=== PATIENT | female | born 1945 | race Caucasian/White ===

== ENCOUNTER 2018-11-25 12:25 | Emergency (ER) | payer MEDICARE ==
[2018-11-25 13:10] LABS: Bilirubin Negative (Negative); Blood, Urine Negative (Negative); Clarity Clear (Clear); Glucose, Urine (Dipstick) Normal (Negative); Leukocyte Negative Leu/uL (Negative); Nitrite Negative (Negative); Protein, Urine (Dipstick) Negative (Neg-Trace); Urobilinogen Normal mg/dL (Less than 2)
[2018-11-25 13:10] LABS: #Basophils 0.1 thou/uL (0.0-0.2); #Eosinphils 0.1 thou/uL (0.0-0.7); #Lymphocytes 1.8 thou/uL (1.20-3.40); #Monocytes 0.7 thou/uL (0.11-0.59); #Neutrophils 8.2 thou/uL (1.40-6.50); %Basophils 0.9 % (0.0-1.0); %Eosinophils 0.6 % (0.0-10.0); %Lymphocytes 16.8 % (21.0-51.0); %Monocytes 6.4 % (0.0-10.0); %Neutrophils 75.4 % (42.0-75.0); Hemoglobin 15.5 g/dL (12.0-16.0); Mean Corpuscular HGB CONC 31.5 g/dL (32.0-36.0); Mean Corpuscular Volume 98.2 fL (78.0-98.0); Mean Platelet Volume 8.3 fL (7.4-10.4); Platelet Count 220 thou/uL (130-400); RBC Distribution Width 13.1 % (11.5-14.5); Red Blood Cell (RBC) Count 4.99 mill/uL (4.20-5.40); White Blood Cell (WBC) Count 10.9 thou/uL (4.8-10.8)
--- NOTE | 2018-11-25 13:12 | RAD ---
PORTABLE CHEST ONE VIEW: 11/25/2018 1:05 p.m. HISTORY: Syncope. Dizziness. FINDINGS: The heart size is normal. The aorta is tortuous. The lungs are well expanded without focal areas of consolidation, pneumothoraces, or pleural effusions. There are degenerative changes in the acromioc lavicular joints. IMPRESSION: No radiographic evidence of acute cardiopulmonary process. POS: [facility]
--- NOTE | 2018-11-25 13:13 | CT ---
EXAM: CT cervical spine PROVIDED CLINICAL HISTORY: Injury COMPARISON: None FINDINGS: No evidence for fracture or traumatic subluxation. No prevertebral soft tissue swelling apparent. Vi sualized lung apices appear clear. Degenerative changes are seen. IMPRESSION: No evidence for fracture or traumatic subluxation.
--- NOTE | 2018-11-25 13:13 | CT ---
CT Brain WO Con: 11/25/2018 12:49 PM CLINICAL HISTORY: Injury with pain. COMPARISON: None. FINDINGS: Hemorrhage: None. Ventricular system: Normal in size and morphology for the patient's age. Cerebral parenchyma: Microvascular ischemic disease Midline shift: None. Mass: No mass effect. Calvarium: Normal. Visualized Paranasal sinuses: Clear. IMPRESSION: No acute intracranial abnormalities.
[2018-11-25 13:30] LABS: ALT (SGPT) 17 U/L (8-55); AST (SGOT) 15 U/L (5-34); Albumin 4.1 g/dL (3.4-4.8); Alkaline Phosphatase 94 U/L (40-150); Anion Gap 11 mmol/L (10-20); BUN (Urea Nitrogen) 22 mg/dL (9.8-20.1); Bilirubin, Total 0.3 mg/dL (0.2-1.2); Calc. Creatinine Clearance 0 mL/min (70-130); Calcium 10.2 mg/dL (7.8-10.44); Carbon Dioxide 28 mmol/L (23-31); Chloride 104 mmol/L (98-107); Estimated GFR-MDRD 83; Globulin 2.6 g/dL (2.4-3.5); Glucose 86 mg/dL (80-115); Potassium 4.4 mmol/L (3.5-5.1); Protein, Total 6.7 g/dL (6.0-8.3); Sodium 139 mmol/L (136-145)
== END 2018-11-25 16:25 | disposition home or self-care (01) ==
LOC: ERS 12:25
DX: R55 Syncope and collapse (principal); F17.210 Nicotine dependence, cigarettes, uncomplicated
CPT/HCPCS: 36415; 36416; 70450; 71045; 72125; 80053; 81003; 84484; 85025; 93005; 94760

== ENCOUNTER 2019-01-09 10:47 | Observation (INO) | payer MEDICARE ==
--- NOTE | 2019-01-09 11:32 | RAD ---
FRONTAL RADIOGRAPH CHEST: DATE: 01/09/2019. COMPARISON: 11/25/2018. HISTORY: Numbness in feet, dizziness, syncope. FINDINGS: Lungs are clear. Heart and mediastinal contours are unremarkable. IMPRESSION: No acute findings. POS: OFF
[2019-01-09 11:41] LABS: ALT (SGPT) 14 U/L (8-55); AST (SGOT) 13 U/L (5-34); Albumin 4.5 g/dL (3.4-4.8); Alkaline Phosphatase 105 U/L (40-150); Anion Gap 12 mmol/L (10-20); BUN (Urea Nitrogen) 16 mg/dL (9.8-20.1); Bilirubin, Total 0.3 mg/dL (0.2-1.2); CK (CPK) 38 U/L (29-168); Calc. Creatinine Clearance 0 mL/min (70-130); Calcium 10.6 mg/dL (7.8-10.44); Carbon Dioxide 26 mmol/L (23-31); Chloride 105 mmol/L (98-107); Estimated GFR-MDRD 77; Globulin 2.9 g/dL (2.4-3.5); Glucose 77 mg/dL (83-110); Potassium 3.9 mmol/L (3.5-5.1); Protein, Total 7.4 g/dL (6.0-8.3); Sodium 139 mmol/L (136-145)
[2019-01-09 11:47] LABS: Bilirubin Negative (Negative); Blood, Urine Negative (Negative); Clarity Clear (Clear); Glucose, Urine (Dipstick) Normal (Negative); Leukocyte Negative Leu/uL (Negative); Nitrite Negative (Negative); Protein, Urine (Dipstick) Negative (Neg-Trace); Urobilinogen Normal mg/dL (Less than 2)
[2019-01-09 12:00] LABS: Band 3 % (5-11); Eosinophils 1 % (0-10); Hemoglobin 15.9 g/dL (12.0-16.0); Lymphocytes 16 % (21-51); MDiff Complete? YES; Mean Corpuscular HGB CONC 34.3 g/dL (32.0-36.0); Mean Corpuscular Hemoglobin 32.7 pg (27.0-31.0); Mean Corpuscular Volume 95.2 fL (78.0-98.0); Monocytes 2 % (0-10); Neutrophil 78 % (42-75); Platelet Count 244 thou/uL (130-400); Platelet Morphology Comment Appears Adequate; RBC Distribution Width 12.3 % (11.5-14.5); Red Blood Cell (RBC) Count 4.85 mill/uL (4.20-5.40)
--- NOTE | 2019-01-09 12:50 | CT ---
CT OF THE HEAD WITHOUT CONTRAST: DATE: 01/09/2019. COMPARISON: None. HISTORY: Syncope. TECHNIQUE: Axial CT imaging at 5 mm intervals from vertex through the skull base without contrast. FINDINGS: Imaged paranasal sinuses and mastoid air cells are well aerated. No displaced calvarial fracture. No intracranial hemorrhage, midline shift, mass effect, or ventricular enlargement. IMPRESSION: No acute findings. POS: OFF
[2019-01-09] MEDS ORDERED: Aspirin Chewable 81 MG TAB ONE (14:42)
[2019-01-09] MEDS ORDERED: Ondansetron ODT 4 MG TAB PO PRN (16:12)
[2019-01-09] MEDS ORDERED: Ondansetron PF 4 MG/2 ML Vial IVP PRN (16:12)
[2019-01-09] MEDS ORDERED: Meclizine HCl 12.5 MG TAB PO PRN (16:12)
[2019-01-09] MEDS ORDERED: Acetaminophen 325 MG TAB PO PRN (16:12)
[2019-01-09 16:43] VITALS: BMI 29.7
[2019-01-09] MEDS: Nicotine 14 MG PATCH TD SCH (18:11)
--- NOTE | 2019-01-09 23:01 | HP ---
PRIMARY CARE PHYSICIAN: eDep Pizano. CHIEF COMPLAINT: Near syncope. HISTORY OF PRESENT ILLNESS: Ms. Correa is a 73-year-old female who has a past medical history of chronic syncope and vertigo who had presented to [facility] earlier today after she experienced some worsening symptoms of near syncope and vertigo when she was lying down in bed. She states that symptoms got real bad to the point that she had passed out last month and she was seen in the hospital, she was also under the care of Dr. Padilla, lion trainer where she had undergone an echocardiogram, a stress test, and also had a 30-day event monitor placed; however, she states that she was supposed to follow up with Dr. Padilla in 1 to 2 weeks and has not heard any other results from the workup. She had denied any fever, chills, any headache, blurred vision, any chest pain, palpitations, shortness of breath, abdominal pain, nausea, vomiting, any change in her stool, numbness, tingling of her upper or lower extremities or any swelling. She states that symptoms come and go and she states that she has days that she has absolutely no symptoms and other days that she is unable to get out of bed due to feeling like she is going to fall and standing on a boat. Her workup in the ED included a portable chest x-ray which was found to be negative along with a CT brain without contrast which was also unremarkable. She was given a full dose of aspirin and transferred to the floor for further workup. REVIEW OF SYSTEMS: All other systems were reviewed and found to be negative unless mentioned in the HPI. PAST MEDICAL HISTORY: Chronic syncope and vertigo. PAST SURGICAL HISTORY: Right leg varicose vein removal and hysterectomy. PSYCHIATRIC HISTORY: None. SOCIAL HISTORY: The patient denies alcohol or any illicit drug use; ,however she states that she does smoke between one and one and a half packs per day of cigarettes. KNOWN ALLERGIES: None. CURRENT HOME MEDICATIONS: Motrin 400 mg 3 times a day as needed for knee pain. PHYSICAL EXAMINATION: VITAL SIGNS: BP 163/90, pulse 78, respiration 18, temp 97.9, O2 saturation 98% on room air. GENERAL: The patient is awake, alert, and oriented x3. She currently lying comfortably in bed and in no acute distress. Her family members are at bedside. HEENT: Atraumatic, normocephalic. Pupils are round and reactive to light. Extraocular muscles intact. Moist mucous membranes noted. NECK: Soft and supple. Trachea midline. CARDIOVASCULAR: Positive S1 and S2. Regular rate and rhythm. No murmur auscultated. RESPIRATORY: Clear to auscultation bilaterally. No wheezes, rales, or rhonchi. ABDOMEN: Soft, nontender. Bowel sounds present. MUSCULOSKELETAL: Strength 5+ bilateral upper and lower extremities. Moves all extremities equal. No edema noted. NEUROLOGIC: Cranial nerves 2 through 12 grossly intact. No focal deficits noted. Speech intact and normal. Gait not assessed. SKIN: Warm, dry, and intact. No rashes. No ulceration noted. PSYCHIATRIC: Good mood and affect. LABORATORY DATA: WBC 8.0, RBC 4.85, hemoglobin 15.9, platelet 244. Sodium 139, potassium 3.9, anion gap 12, BUN 16, creatinine 0.74, estimated GFR 77, glucose 77. Troponin less than 0.010. Urinalysis unremarkable. DIAGNOSTIC IMAGING: Portable chest x-ray showed no acute findings. CT brain without contrast showed no acute findings. ASSESSMENT AND PLAN: 1. Near syncope and vertigo. The patient will undergo MRI of head without contrast along with carotid Doppler for further workup. We will consult Cardiology Services, Dr. Padilla for her echocardiogram, stress test and her 30-day event monitor results and we will await for further recommendations. We will also treat it with meclizine as needed. 2. Tobacco abuse. Continue with nicotine patch and strongly encouraged smoking cessation. However, the patient not willing to quit. 3. Deep venous thrombosis and gastrointestinal prophylaxis. 4. Code status is full code. 5. Surrogate decision maker is her daughter, Karmen Correa. DISPOSITION: Pending further workup and clinical findings, the patient will likely be discharged home in the next 1 to 2 days. Job ID: [id number]
[2019-01-10 05:07] LABS: #Basophils 0.1 thou/uL (0.0-0.2); #Eosinphils 0.1 thou/uL (0.0-0.7); #Lymphocytes 1.7 thou/uL (1.20-3.40); #Monocytes 0.4 thou/uL (0.11-0.59); #Neutrophils 3.8 thou/uL (1.40-6.50); %Eosinophils 1.4 % (0.0-10.0); %Lymphocytes 28.2 % (21.0-51.0); %Monocytes 6.4 % (0.0-10.0); Hemoglobin 14.1 g/dL (12.0-16.0); Mean Corpuscular HGB CONC 34.1 g/dL (32.0-36.0); Mean Corpuscular Hemoglobin 32.9 pg (27.0-31.0); Mean Corpuscular Volume 96.4 fL (78.0-98.0); Mean Platelet Volume 8.5 fL (7.4-10.4); Platelet Count 190 thou/uL (130-400); RBC Distribution Width 12.3 % (11.5-14.5)
[2019-01-10 05:28] LABS: Anion Gap 9 mmol/L (10-20); BUN (Urea Nitrogen) 14 mg/dL (9.8-20.1); Calc. Creatinine Clearance 105 mL/min (70-130); Calcium 9.9 mg/dL (7.8-10.44); Carbon Dioxide 27 mmol/L (23-31); Cardiac Risk 4.9 (Less than 4.5); Chloride 107 mmol/L (98-107); Cholesterol 254 mg/dl (< 200 Desired); Estimated GFR-MDRD Greater than 90; Glucose 98 mg/dL (83-110); HDL Cholesterol 52 mg/dL (>60 Neg Risk); LDL Cholesterol, Calculated 187 mg/dL; Sodium 139 mmol/L (136-145); Triglycerides 77 mg/dL (Less than 150)
[2019-01-10] MEDS ORDERED: Enoxaparin Sodium 40 MG/0.4 ML SYRINGE SC SCH (09:00)
[2019-01-10] MEDS ORDERED: Prevnar 13-Val Conj/PF 0.5 ML SYRINGE IM ONE (09:00)
--- NOTE | 2019-01-10 10:51 | ULT ---
CAROTID ARTERIAL DOPLER ULTRASOUND: DATE: 01/10/2019. COMPARISON: None. HISTORY: Syncope, assess for carotid artery disease. TECHNIQUE: Multiplanar, guzman scale, sonographic imaging arterial structures of neck obtained with color flow and spectral analysis. FINDINGS: Antegrade blood flow and normal arterial waveforms are documented within the carotid and vertebral sy stem bilaterally. VESSEL: PSV(CM/S) Right CCA 105 Right ICA 115 Right ECA 86 Left CCA 140 Left ICA 108 Left ECA 142 IC/CC ratio is 1.1 on the right and 0.8 on the left. IMPRESSION: Elevated velocity within the mid left common carotid artery correlates with a moderate degree of sten osis (50-69%). Recommend correlation with nonemergent CT angiogram of the neck. POS: OFF
--- NOTE | 2019-01-10 10:59 | MRI ---
BRAIN MRI NONCONTRAST: COMPARISON: Reference is made to head CT of previous day. CLINICAL INDICATION: Syncope. FINDINGS: There is no evidence of acute territorial infarct, intracranial mass effect, midline shift, or ventri culomegaly. There is a slight prominence of the extraaxial CSF signal likely related to mild volume loss. No parenchymal hemorrhage. There is mild chronic ischemic disease. There is also pontine gli osis. IMPRESSION: 1. No acute territorial infarction or mass effect. 2. Mild chronic ischemic disease and slight parenchymal atrophy. POS: TPC
--- NOTE | 2019-01-10 11:49 | PDOC.HOSPP ---
- Subjective Subjective: Seen and examined. Patient states that dizziness is worse with position of her head. Did have a drop in BP with standing on orthostatics, though BP is on the high side. Pending MRI and Cardiology eval this AM. - Objective Vital Signs & Weight: Vital Signs (12 hours) Temp Pulse Resp BP BP BP BP 01/10/19 11:10 98.4 F 89 18 137/79 01/10/19 07:37 98.3 F 82 20 176/84 H 139/88 163/70 H 01/10/19 03:57 98.4 F 70 16 147/81 H 01/10/19 00:00 98.1 F 95 23 H 166/79 H Pulse Ox 01/10/19 11:10 95 01/10/19 07:37 95 01/10/19 03:57 97 01/10/19 00:00 94 L Weight Weight 173 lb 3.2 oz I&O: 01/09/19 01/10/19 01/11/19 06:59 06:59 06:59 Intake Total 960 Balance 960 Result Diagrams: 01/10/19 04:12 01/10/19 04:12 Radiology Reviewed by me: Yes (CT brain) Hospitalist ROS - Review of Systems All other systems reviewed; all pertinent +/- noted in HPI/Subj - Medication Medications: Active Medications Generic Name Dose Route Start Last Admin Trade Name Freq PRN Reason Stop Dose Admin Acetaminophen 650 mg 01/09/19 16:12 01/10/19 07:53 Tylenol PO 650 mg Q4H PRN Administration Headache/Fever/Mild Pain (1-3) Enoxaparin Sodium 40 mg 01/10/19 09:00 01/10/19 07:55 Lovenox SC Not Given 0900 CELESTINE Nicotine 14 mg 01/09/19 17:00 01/09/19 18:11 Nicoderm Patch TD 14 mg Q24HR CELESTINE Administration Sodium Chloride 10 ml 01/09/19 21:00 01/10/19 07:54 Flush - Normal Saline IVF 10 ml Q12HR CELESTINE Administration - Exam General Appearance: NAD, awake alert Eye: PERRL Eye - other findings: EOMI ENT: no oropharyngeal lesions, moist mucosa Neck: supple, symmetric Heart: RRR, no murmur, no gallops, no rubs Respiratory: CTAB, no wheezes, no rales, no ronchi, normal chest expansion Gastrointestinal: soft, non-tender, non-distended, normal bowel sounds, no guarding Extremities: no edema Skin: no lesions, no rashes Neurological: CN's grossly intact, no weakness, no focal deficits Psychiatric: normal affect, A&O x 3 Hosp A/P (1) Dizziness Code(s): R42 - DIZZINESS AND GIDDINESS Status: Acute (2) TIA (transient ischemic attack) Code(s): G45.9 - TRANSIENT CEREBRAL ISCHEMIC ATTACK, UNSPECIFIED Status: Acute (3) Near syncope Status: Acute (4) Tobacco abuse Code(s): Z72.0 - TOBACCO USE Status: Acute - Plan Plan: Medical unit with telemetry Cardiology consult, recommendations appreciated 30 day holter monitor just completed Positive orthostatic vitals, though BP on the high side No sig abnormalities on EKG Neg cardiac enzymes MRI brain pending Carotid US Echo Metabolic work up is benign GI and DVT PPX
[2019-01-10] MEDS ORDERED: Aspirin 81 mg Enteric Coated Tablet PO SCH (15:00)
[2019-01-10 15:58] VITALS: BP 114/67; TEMP 98.3
[2019-01-10] MEDS: Nicotine 14 MG PATCH TD SCH (18:10)
--- NOTE | 2019-01-10 18:42 | CON ---
DATE OF CONSULTATION: 01/10/2019 CONSULTING PHYSICIAN: Hospitalist Service. IMPRESSION: Probable benign positional vertigo. PLAN: 1. Outpatient evaluation at the [facility]. 2. Followup CT angiogram of the carotids and vertebrals. HISTORY OF PRESENT ILLNESS: Ms. Correa is a 73-year-old female, who has been having episodic vertigo for the last few months. She had an intense episode when she laid down in bed. The spinning lasted about 2 minutes, it was not associated with nausea, slurred speech, or any focal neurologic deficits. She has had similar attacks in the past. She came in for evaluation. She was subsequently admitted, had an MRI of the brain, which was normal. She had a carotid ultrasound, which did not show any conclusive stenosis. She is otherwise feeling well at this point. PAST MEDICAL HISTORY: Otherwise unremarkable. SOCIAL HISTORY: Positive for tobacco. ALLERGIES: NONE REPORTED. FAMILY HISTORY: Noncontributory. REVIEW OF SYSTEMS: Ten-system review of systems is otherwise negative. PHYSICAL EXAMINATION: GENERAL: She is a well-nourished elderly woman, in no distress. VITAL SIGNS: Blood pressure 172/87, pulse 80, respirations 20, temperature 98.6. HEENT: Pupils equal and reactive. Conjunctivae clear. No nystagmus noted. NECK: Supple. No lymphadenopathy. EXTREMITIES: No cyanosis or edema. NEUROLOGIC: She is alert and appropriate. Her speech is fluent and clear. Cranial nerves 2 through 12 are intact. Motor exam showed equal terrazzo tile maker strength. She can walk independently. She has no tremor or dysmetria. Sensation is intact. IMAGING STUDIES: EKG shows sinus rhythm. Echocardiogram showed a 55% to 60% ejection fraction. SUMMARY: This is an elderly woman with postural dizziness consistent with probable benign positional vertigo. I will be happy to follow up with her as an outpatient. Job ID: [id number]
--- NOTE | 2019-01-10 21:06 | CON ---
DATE OF CONSULTATION: HISTORY: Madison Correa is a 73-year-old white female, who had an episode of vertigo-syncope in November. She was seen in the Emergency Room and then released. She was sent to my office for further evaluation and has undergone a 30-day monitor. There were two episodes of lightheadedness, where she recorded her heartbeat and she was in sinus rhythm with rates 116 to 120 per minute. There were no excessively bradycardic episodes or tachycardic episode during the 1 month of monitoring. She also underwent echocardiogram, which revealed ejection fraction of 55% to 60% with aortic valvular sclerosis, mild mitral regurgitation, mild tricuspid regurgitation. Also, Lexiscan cardiac PET was normal without evidence of ischemia or infarction. She now is admitted after yesterday she had another episode of extreme vertigo with a feeling that the room was spinning even with lying supine in bed. Every time she tried to turn her head, she will have that feeling again. She denied any significant nausea with this. She was then brought to the emergency room for further evaluation. She denies any chest discomfort. PAST MEDICAL HISTORY: Venous insufficiency, hypercholesterolemia. No history of diabetes or hypertension. MEDICATIONS: None, except Motrin for knee pain. ALLERGIES: NONE. OPERATIONS: Radiofrequency ablation of the right great saphenous vein and hysterectomy. SOCIAL HISTORY: She continues to smoke 1 to 1-1/2 packs a day. She does not drink. REVIEW OF SYSTEMS: Twelve-point review of systems is otherwise unremarkable. PHYSICAL EXAMINATION: VITAL SIGNS: Blood pressure 176/84, pulse 82. HEENT: PERRL. NECK: Supple. CHEST: Clear. CARDIAC: S1 and S2 normal without any S3, S4, or murmurs. Carotid upstrokes are normal without bruits. ABDOMEN: Normal bowel sounds without tenderness or organomegaly. EXTREMITIES: Revealed no clubbing, cyanosis, or edema. There are varicose veins in both lower extremities. NEUROLOGIC: Grossly intact. SKIN: Warm and dry. IMAGING STUDIES: EKG revealed normal sinus rhythm with possible left atrial enlargement. Brain MRI revealed mild chronic ischemic changes and slight atrophy. Carotid Doppler revealed antegrade flow in the vertebral arteries. There was a 50% to 69% stenosis in the left common carotid artery. LABORATORY DATA: Hemoglobin 14.1, hematocrit 41.4, white count 6000, platelets 190,000. Sodium 139, potassium 4.0, chloride 107, carbon dioxide 27, BUN 14, creatinine 0.61, cholesterol 254, triglycerides 77, HDL 52, LDL 187. IMPRESSION: 1. History most consistent with vertigo. Consideration should be given to an ENT referral and also agree with meclizine as needed. 2. A 50% to 79% left common carotid artery stenosis. CT angiogram of the carotid should be performed. She also should be placed on aspirin 81 mg with this finding unless further testing shows that she has absolutely no carotid artery plaquing. 3. Hypercholesterolemia. Discussion has been held in the past in regard to statin medications; however, she has vehemently opposed taking them. 4. Smoker. PLAN: The patient should be on aspirin 81 mg daily as long as there is concern regarding carotid artery stenosis. CT angiogram of the carotid artery should be performed. Neurological consultation is pending. From a cardiac standpoint, I do not feel any further evaluation is warranted and will be available if there are further problems. Job ID: [id number] MTDD
[2019-01-11] MEDS ORDERED: Aspirin 81 mg Enteric Coated Tablet PO SCH (09:00)
--- NOTE | 2019-01-11 13:46 | DIS ---
DATE OF ADMISSION: 01/09/2019 DATE OF DISCHARGE: 01/10/2019 REASON FOR HOSPITALIZATION: Dizziness. SIGNIFICANT FINDINGS: The patient was found to have blood pressure irregularities with highs and lows. SPECIFIC PROCEDURES PERFORMED AND TREATMENTS RENDERED: The patient was seen by Neurology, please see full consultation note for details. The patient is seen by Cardiology, please see full consultation for details. The patient had an MRI of the brain, which was negative for acute intracranial pathology, please see full report for details. The patient recommended safe for discharge by all specialists. CONDITION ON DISCHARGE: Stable. SPECIFIC INSTRUCTIONS FOR THE PATIENT/FAMILY: 1. The patient is recommended to take all medications as directed, to be re-evaluated by primary care physician, Cardiology, and Neurology in the outpatient clinic. 2. The patient is recommended to follow up with primary care physician in the next 2 to 4 days. 3. The patient is recommended to follow up with Cardiology in the next 5 to 7 days. 4. The patient is recommended to follow up with Neurology in the next 1 to 2 weeks. 5. The patient is recommended to continue Holter monitor as directed by Cardiology. 6. The patient is recommended to return to acute care hospital immediately if signs or symptoms return, worsen, or any other new symptoms occur. DISCHARGE MEDICATIONS: Please see full discharge medication list for details. HOSPITAL COURSE: Ms. Correa is a pleasant 73-year-old female, who presented to [facility] on 01/09/2019, with dizziness and near syncope. The patient was admitted to [facility] with concern for acute posterior circulation cerebrovascular accident. The patient was admitted to stroke unit, had MRI of the brain, please see full report for details, no acute intracranial pathology was identified. The patient was seen and examined by Neurology and Cardiology, please see full consultation notes from specialists for full details. Specialist recommending no further acute inpatient workup and recommended the patient safe for discharge home. All medications adjusted appropriately by specialist. The patient is recommended to follow up with all specialists as directed in the outpatient setting at upcoming appointments. The patient is recommended to take all medications as directed. The patient is recommended to return to acute care hospital immediately if signs or symptoms return, worsen, or any other new symptoms occur. Greater than 33 minutes spent coordinating care and discharge process for this patient. Job ID: [id number] [facility]
--- NOTE | 2019-01-15 01:27 | EKG ---
Test Reason : DIZZY Blood Pressure : / mmHG Vent. Rate : 095 BPM Atrial Rate : 095 BPM P-R Int : 132 ms QRS Dur : 082 ms QT Int : 348 ms P-R-T Axes : 063 037 039 degrees QTc Int : 437 ms Normal sinus rhythm Possible Left atrial enlargement Borderline ECG Confirmed by ELVA ALEJANDRO ([id number]), supervising film or videotape editor ALEJANDRA CHANEL ([id number]) on 01/15/2019 1:27:09 AM Referred By: Confirmed By:ELVA ALEJANDRO
== END 2019-01-10 18:51 | disposition home or self-care (01) ==
LOC: ERS 10:47 → 2SE 14:11
PROVIDERS: ADMIT Internal Medicine; ATTEND Internal Medicine
DX: R55 Syncope and collapse (principal); R42 Dizziness and giddiness; F17.210 Nicotine dependence, cigarettes, uncomplicated; I65.22 Occlusion and stenosis of left carotid artery; G93.89 Other specified disorders of brain; E78.00 Pure hypercholesterolemia, unspecified; I87.2 Venous insufficiency (chronic) (peripheral)
CPT/HCPCS: 70450; 70551; 71045; 80048; 80053; 80061; 81003; 82550; 84484; 85025 ×2; 90670; 93005; 93880; 97139; 99285; G0009; G0378 ×3; 36415; 90471; J1650; J8597

== ENCOUNTER 2019-01-16 14:26 | Outpatient (CLI) | payer MEDICARE ==
[~2019-01-16 14:26] MED LIST: Iopamidol 370 76% 100 ML VIAL ONE
--- NOTE | 2019-01-16 15:47 | CT ---
"PRELIMINARY REPORT" CT ANGIOGRAM NECK: 01/16/2019 HISTORY: Vertigo. Abnormal carotid arterial Doppler ultrasound. Syncope. COMPARISON: None. TECHNIQUE: Axial CT imaging at 2 mm intervals from the lung apices through the skull base with IV contrast using CT angiogram protocol. Coronal and sagittal 3D reformatted imaging obtained. FINDINGS: Evaluation of the lung apices is limited secondary to respiratory motion artifact. There is a sugges tion of numerous nonspecific, poorly marginated, subcentimeter pulmonary nodules within the bilateral lung apices. The retroantral fat and the parapharyngeal fat appear clear bilaterally. The parotid and submandibular glands appear grossly unremarkable. The level of the tonsillar pillars, epiglottis, preepiglottic fat, hyoid bone, thyroid cartilage, cri coid cartilage and glottis appear unremarkable. The thyroid gland is heterogeneous and contains multiple hypodense nodules, right larger than left, i ncompletely assessed on this examination. Findings include a 1.3 cm solid-appearing nodule within the left lobe of the thyroid gland and multiple hypodense nodules within the right lobe, measuring up to at least 1.8 cm. Dedicated thyroid ultrasound is advised. There is atherosclerotic calcification of the aortic arch. There is no stenosis seen at the origin o f the innominate artery or at the origin of either subclavian artery or common carotid artery. Mild stenosis noted at the origin of the left vertebral artery. The origin of the right vertebral ar joy appears grossly unremarkable. On the basis of NASCET criteria, there is no hemodynamically significant stenosis involving the commo n carotid artery or the internal carotid artery on either side. There is partially calcified atherosclerotic plaque involving the distal CCA bilaterally, right great er than left, as well as the proximal internal carotid artery bilaterally, right greater than left. Review of the osseous structures demonstrates cervical spine degenerative change involving the mid ce rvical spine and the atlantoaxial interspace. No worrisome lytic or blastic bone lesions. IMPRESSION: 1. No evidence for hemodynamically significant stenosis involving the carotid or vertebral system. 2. Abnormal appearance of the thyroid gland for which thyroid ultrasound is advised. 3. Ill-defined, nonspecific, subcentimeter bilateral upper lobe pulmonary nodules. Dedicated CT exa mination of the chest is advised. CODE T Transcribed Date/Time: 01/16/2019 5:33 PM
== END 2019-01-16 14:27 | disposition home or self-care (01) ==
LOC: BICCT 14:26
PROVIDERS: ATTEND Nurse Practitioner Adult Health
DX: R42 Dizziness and giddiness (principal); R93.89 Abnormal findings on diagnostic imaging of other specified body structures; R91.8 Other nonspecific abnormal finding of lung field; R94.6 Abnormal results of thyroid function studies
CPT/HCPCS: 70498; Q9967

== ENCOUNTER 2019-02-21 12:50 | Day surgery (SDC) | payer MEDICARE ==
[2019-02-20 11:38] VITALS: BMI 29.8
[~2019-02-21 12:50] MED LIST changes: -Iopamidol 370 76% 100 ML VIAL ONE; +Prevnar 13-Val Conj/PF 0.5 ML SYRINGE IM ONE
[2019-02-21] MEDS ORDERED: Lidocaine 1% PF 5 ML VIAL ONE (12:57)
[2019-02-21] MEDS ORDERED: Sodium Bicarbonate 2.5 MEQ/5 ML VIAL ONE (12:57)
[2019-02-21 14:00] VITALS: BP 141/72; TEMP 98.3
--- NOTE | 2019-02-21 14:11 | ULT ---
Fine-needle aspiration of right thyroid nodule: 02/21/2019 HISTORY: Suspicious nodule in the superior aspect of the right lobe of the thyroid gland FINDINGS: Informed consent obtained prior to the procedure. The suspicious nodule noted in the upper aspect of the right lobe of the thyroid gland is again seen, on today's examination measuring 2.5 x 2.0 x 2.4 cm. Skin overlying this nodule was prepped and draped in normal sterile fashion and anesthe tized with 1% buffered lidocaine. With direct sonographic guidance, 4 25-gauge fine-needle aspirations were obtained and given to pathology personnel at the bedside. The patient tolerated the procedure well. No postprocedural complications. Within the An additional hypoechoic solid nodule is noted within the lower aspect of the right lobe measuring up to 2.3 cm. There is also a solid nodule within the left lobe measuring up to 1.5 cm. These nodules were better evaluated on recent dedicated thyroid ultrasound. Please see that report for full assessm ent. IMPRESSION: Successful fine-needle aspiration of suspicious nodule in the superior aspect of the righ t lobe of the thyroid gland.
== END 2019-02-21 13:45 | disposition home or self-care (01) ==
LOC: ULT 12:50
PROVIDERS: ATTEND Student in an Organized Health Care Education/Training Program
DX: E04.1 Nontoxic single thyroid nodule (principal); F17.210 Nicotine dependence, cigarettes, uncomplicated; M19.90 Unspecified osteoarthritis, unspecified site
CPT/HCPCS: 60100; 76942; 88173; J2001

== ENCOUNTER 2019-03-09 19:01 | Emergency (ER) | payer MEDICARE ==
[2019-03-09 19:47] LABS: #Basophils 0.1 thou/uL (0.0-0.2); #Lymphocytes 1.9 thou/uL (1.20-3.40); #Monocytes 0.5 thou/uL (0.11-0.59); #Neutrophils 6.1 thou/uL (1.40-6.50); %Basophils 0.7 % (0.0-1.0); %Eosinophils 0.6 % (0.0-10.0); %Lymphocytes 21.9 % (21.0-51.0); %Monocytes 5.3 % (0.0-10.0); %Neutrophils 71.6 % (42.0-75.0); Mean Corpuscular HGB CONC 32.6 g/dL (32.0-36.0); Mean Corpuscular Hemoglobin 31.4 pg (27.0-31.0); Mean Corpuscular Volume 96.3 fL (78.0-98.0); Mean Platelet Volume 7.9 fL (7.4-10.4); Platelet Count 229 thou/uL (130-400); RBC Distribution Width 11.7 % (11.5-14.5); Red Blood Cell (RBC) Count 4.76 mill/uL (4.20-5.40); White Blood Cell (WBC) Count 8.5 thou/uL (4.8-10.8)
[2019-03-09 19:49] LABS: Bilirubin Negative (Negative); Blood, Urine Negative (Negative); Clarity Clear (Clear); Glucose, Urine (Dipstick) Normal (Negative); Leukocyte Negative Leu/uL (Negative); Nitrite Negative (Negative); Protein, Urine (Dipstick) Negative (Neg-Trace); Urobilinogen Normal mg/dL (Less than 2)
[2019-03-09] MEDS ORDERED: Mag-Al 1200 mg/1200 mg/30 ML UDCUP ONE (19:59)
[2019-03-09] MEDS ORDERED: Lidocaine Viscous Sol 2% 15 ml UD Cup ONE (19:59)
[2019-03-09] MEDS ORDERED: Promethazine 25 MG TAB ONE (19:59)
[2019-03-09 20:11] LABS: ALT (SGPT) 12 U/L (8-55); AST (SGOT) 14 U/L (5-34); Albumin 4.2 g/dL (3.4-4.8); Alkaline Phosphatase 90 U/L (40-110); Anion Gap 14 mmol/L (10-20); BUN (Urea Nitrogen) 12 mg/dL (9.8-20.1); Bilirubin, Total 0.5 mg/dL (0.2-1.2); Calc. Creatinine Clearance 0 mL/min (70-130); Calcium 10.1 mg/dL (7.8-10.44); Carbon Dioxide 26 mmol/L (23-31); Chloride 105 mmol/L (98-107); Estimated GFR-MDRD 74; Globulin 2.7 g/dL (2.4-3.5); Glucose 98 mg/dL (83-110); Lipase 19 U/L (8-78); Magnesium 2.1 mg/dL (1.6-2.6); Potassium 3.8 mmol/L (3.5-5.1); Protein, Total 6.9 g/dL (6.0-8.3); Sodium 141 mmol/L (136-145)
[2019-03-09 20:38] LABS: Free T4 (Free Thyroxine) 1.21 ng/dL (0.70-1.48); Thyroid Stimulating Hormone 0.0131 uIU/mL (0.35-4.94)
== END 2019-03-09 22:27 | disposition home or self-care (01) ==
LOC: ERS 19:01
DX: I16.0 Hypertensive urgency (principal); F17.210 Nicotine dependence, cigarettes, uncomplicated; Z79.899 Other long term (current) drug therapy
CPT/HCPCS: 36415; 80053; 81003; 83690; 83735; 84439; 84443; 84484; 85025; 99283; Q0169

== ENCOUNTER 2019-05-18 13:19 | Outpatient (CLI) | payer MEDICARE ==
--- NOTE | 2019-05-18 14:42 | BD ---
DEXA BONE DENSITY STUDY: HISTORY: Postmenopausal. Nontoxic thyroid nodule. FINDINGS: Lumbar Spine: BMD (g/cm2) L1 0.796 T-Score: -1.8 L2 0.819 T-Score: -1.9 L3 0.912 T-Score: -1.6 L4 0.858 T-Score: -1.8 L1-L4 0.844 T-Score: -1.8 Femoral Neck: 0.639 T-Score: -1.9 Total Femur: 0.756 T-Score: -1.5 Impression: 1. Osteopenia of the lumbar spine and left femoral neck. 2. Ten-year fracture risk of a major osteoporotic fracture is 12% and of a hip fracture 3.4%. These fracture probabilities are calculated for an untreated patient. POS: [facility]
== END 2019-05-18 13:20 | disposition home or self-care (01) ==
LOC: BICMAMMO 13:19
PROVIDERS: ATTEND Internal Medicine Endocrinology, Diabetes & Metabolism
DX: Z13.820 Encounter for screening for osteoporosis (principal); M85.89 Other specified disorders of bone density and structure, multiple sites
CPT/HCPCS: 77080

== ENCOUNTER 2019-06-05 09:12 | Outpatient (CLI) | payer MEDICARE ==
--- NOTE | 2019-06-06 11:10 | NM ---
EXAM: Nuclear medicine I-123 thyroid uptake/scan HISTORY: Nontoxic single thyroid nodule COMPARISON: Thyroid ultrasound 02/21/2019 TECHNIQUE: A nuclear medicine I-123 thyroid uptake and scan was performed after administration of 247 uCi of I-123. FINDINGS: Thyroid scan: Increased uptake is seen in the nodular region in the lower pole the right thyroid gland. This area o f uptake does not cause suppression of the rest of the right lobe or the left lobe of the thyroid. Right lobe size : 5.1 cm Left lobe size: 2.7 cm Thyroid uptake: 6 hour uptake: 19 % 24 hour uptake: 33 % IMPRESSION: 1. The area in the lower pole the right thyroid gland may represent either nodular thyroid tissue or a warm nodule. This does not completely suppress the rest of the thyroid gland. The uptake values are slightly elevated which could be consistent with mild Graves' disease.
== END 2019-06-05 09:13 | disposition home or self-care (01) ==
LOC: NM 09:12
PROVIDERS: ATTEND Internal Medicine Endocrinology, Diabetes & Metabolism
DX: E04.2 Nontoxic multinodular goiter (principal); R94.6 Abnormal results of thyroid function studies
CPT/HCPCS: 78014; A9516

== ENCOUNTER 2019-06-27 10:45 | Outpatient (CLI) | payer MEDICARE ==
--- NOTE | 2019-06-27 14:41 | MMO ---
Bilateral MAMMO Bilat Screen [facility]. CLINICAL HISTORY: Patient is 73 years old and is seen for screening. VIEWS: The views performed were: . This study has been interpreted with the assistance of computer-aided detection. MAMMOGRAM FINDINGS: There are scattered fibroglandular densities. Right breast: Oval asymmtery only appreciated on the CC projection. Left breast: 9 mm round mass in the inner lower quadrant. There are benign appearing calcifications in the left breast. IMPRESSION: FINDINGS IN BOTH BREASTS REQUIRE ADDITIONAL EVALUATION. ADDITIONAL PROJECTIONS (BILATERAL CRANIOCAUDAL SPOT COMPRESSION; BILATERAL MEDIOLATERAL; AND LEFT MEDIOLATERAL OBLIQUE SPOT COMPRESSION) ARE RECOMMENDED. AN ULTRASOUND EXAM IS RECOMMENDED. THE RESULTS OF THIS EXAM WERE SENT TO THE PATIENT. ACR BI-RADS Category 0 - Incomplete: Need additional imaging evaluation. [facility] will notify the patient of the need for additional imaging services. MAMMOGRAPHY NOTE: 1. A negative mammogram report should not delay a biopsy if a dominant of clinically suspicious mass is present. 2. Approximately 10% to 15% of breast cancers are not detected by mammography. 3. Adenosis and dense breasts may obscure an underlying neoplasm. Reported by: CHANTAL SHI MD Electonically Signed: [id number]
== END 2019-06-27 10:46 | disposition home or self-care (01) ==
LOC: BICMAMMO 10:45
PROVIDERS: ATTEND Family Medicine
DX: Z12.31 Encounter for screening mammogram for malignant neoplasm of breast (principal)
CPT/HCPCS: 77063; 77067

== ENCOUNTER 2019-07-06 12:45 | Outpatient (CLI) | payer MEDICARE ==
--- NOTE | 2019-07-06 13:40 | MMO ---
Bilateral MAMMO Bilat Diag [facility]. CLINICAL HISTORY: Patient is 73 years old and is seen for additional evaluation requested from prior study. The patient has the following family history of breast cancer: niece, malignant (generic), X2. The patient has no personal history of cancer. VIEWS: The views performed were: bilateral craniocaudal spot compression with tomosynthesis; bilateral mediolateral with tomosynthesis; and left mediolateral oblique spot compression with tomosynthesis. FILMS COMPARED: The present examination has been compared to prior imaging studies performed at [facility] on 06/27/2019 and 07/06/2019. This study has been interpreted with the assistance of computer-aided detection. MAMMOGRAM FINDINGS: The breasts are almost entirely fat. Finding 1: There is an equal density mass measuring 7 millimeters with circumscribed margins seen in the lower-outer region of the right breast. Finding 2: There is a round mass measuring 9 millimeters with circumscribed margins seen in the left breast in the sub-areolar region and in the inner region. IMPRESSION: FINDING 1: MASS IN THE RIGHT BREAST IS PROBABLY BENIGN. FOLLOW-UP IN 6 MONTHS IS RECOMMENDED. FINDING 2: MASS IN THE LEFT BREAST IS PROBABLY BENIGN. FOLLOW-UP IN 6 MONTHS IS RECOMMENDED. THE RESULTS OF THIS EXAM WERE SENT TO THE PATIENT. ACR BI-RADS Category 3 - Probably benign finding - short interval follow-up suggested. [facility] will notify the patient of the need for additional imaging services. MAMMOGRAPHY NOTE: 1. A negative mammogram report should not delay a biopsy if a dominant of clinically suspicious mass is present. 2. Approximately 10% to 15% of breast cancers are not detected by mammography. 3. Adenosis and dense breasts may obscure an underlying neoplasm. Reported by: CHIRS IZAGUIRRE MD Electonically Signed: [id number]
--- NOTE | 2019-07-06 13:57 | ULT ---
BILATERAL BREAST ULTRASOUND: 07/06/19 HISTORY: Patient with first time mammogram with nodules seen in both breast. COMPARISON: Mammogram study of 06/27/19 and 07/06/19. Real time imaging of the right and left breast were performed. The right breast shows a slightly bilo bed nodular density with fairly circumscribed margin measuring 4 x 8 mm in size. It is essentially is oechoic to surrounding breast tissue. A similar more round to slightly oblong shape circumscribed 5 x 8 mm nodule seen within the left breast at the 10 o'clock position. These correspond in size and l ocation to the mammographic abnormalities. IMPRESSION: BIRADS 3: Probably Benign Finding Initial Short-Interval Follow-Up Suggested Initial short-term follow up (usually 6-month) examination. The appearance of these would suggest more likely benign etiology given the somewhat circumscribed na ture when reviewing the mammogram and ultrasound. I would recommend a six month follow-up mammogram a nd ultrasound examination of both breasts for assessment. This is explained to the patient that there is a low possibility of malignancy but she was comfortable with six month follow-up. Exam was also r eviewed with Dr. Santacruz who agrees. POS: OFF
== END 2019-07-06 12:46 | disposition home or self-care (01) ==
LOC: BICMAMMO 12:45
PROVIDERS: ATTEND Family Medicine
DX: R92.2 Inconclusive mammogram (principal); N63.10 Unspecified lump in the right breast, unspecified quadrant; N63.20 Unspecified lump in the left breast, unspecified quadrant
CPT/HCPCS: 76642 ×2; 77066; G0279

== ENCOUNTER 2020-06-04 13:43 | Outpatient (CLI) | payer MEDICARE ==
--- NOTE | 2020-06-04 14:33 | CT ---
EXAM: CT Pulmonary Lung Scan PROVIDED CLINICAL HISTORY: Initial baseline low-dose lung screening evaluation. Nicotine dependence, cigarettes, uncomplicated. COMPARISON: CT thorax on 02/02/2019 FINDINGS: Mild emphysematous changes are seen within the lungs bilaterally. There is minimal ill-defined ground glass density seen in the right upper lobe could be related to infectious or inflammatory process. No discrete pulmonary nodule or mass is identified. No pleural effusion is seen. There is a mildly enlarged precarinal lymph node measuring 1.3 cm in short axis dimension. This is ov erall nonspecific. There is a small filling defect seen in the posterior aspect of the trachea just above the level of the yasir with gas density seen centrally. This is probably related to minimal se cretions. Vascular calcifications are seen in the thoracic aorta and involving the coronary arteries. Calcifications are seen in the right lobe of thyroid gland with heterogeneity of the right lobe of th yroid gland. This was better visualized on prior postcontrast CT thorax in 2019. Left adrenal nodule is again seen measuring 1.7 cm in greatest dimension which is also stable in size compared to prior exam. Attenuation coefficient on this examination is suggestive of an adrenal adenoma. Degenerative changes are seen in the spine. IMPRESSION: 1. Lung RADS category 1-no pulmonary nodule is seen within the lungs bilaterally. Continued annual sc reening with low-dose CT thorax in 12 months is recommended. 2. Lung RADS category S-small groundglass density right upper lobe which may represent infectious or inflammatory process. Follow-up evaluation is recommended to ensure resolution. 3. Left adrenal nodule stable in size compared to prior study in 2019, and attenuation coefficient is most suggestive of an adrenal adenoma. 4. Mild asymmetric enlargement right adrenal gland with slight heterogeneity and calcifications. This was also seen on study in 2019. Attenuation coefficient on current study is suggestive of an adrenal adenoma. 5. Vascular calcifications. 6. Nonspecific mildly prominent precarinal lymph node.
== END 2020-06-04 13:44 | disposition home or self-care (01) ==
LOC: BICCT 13:43
PROVIDERS: ATTEND Family Medicine
DX: Z12.2 Encounter for screening for malignant neoplasm of respiratory organs (principal); F17.210 Nicotine dependence, cigarettes, uncomplicated; E27.8 Other specified disorders of adrenal gland; J98.4 Other disorders of lung; I70.0 Atherosclerosis of aorta; I25.10 Atherosclerotic heart disease of native coronary artery without angina pectoris
CPT/HCPCS: G0297

== ENCOUNTER 2020-07-02 10:19 | Outpatient (CLI) | payer MEDICARE ==
--- NOTE | 2020-07-02 11:00 | MMO ---
Bilateral MAMMO Bilat Diag [facility]. CLINICAL HISTORY: Patient is 74 years old and is seen for diagnostic exam. The patient has the following family history of breast cancer: niece, malignant (generic), X2. The patient has no personal history of cancer. VIEWS: The views performed were: bilateral craniocaudal with tomosynthesis; bilateral mediolateral oblique with tomosynthesis; and bilateral mediolateral with tomosynthesis. FILMS COMPARED: The present examination has been compared to prior imaging studies performed at [facility] on 07/06/2019 and 12/27/2019. This study has been interpreted with the assistance of computer-aided detection. MAMMOGRAM FINDINGS: The breasts are almost entirely fat. There are stable nodules seen in both breasts. There are no suspicious masses, suspicious calcifications, or new areas of architectural distortion. IMPRESSION: THERE IS NO MAMMOGRAPHIC EVIDENCE OF MALIGNANCY. A ROUTINE FOLLOW-UP MAMMOGRAM IN 1 YEAR IS RECOMMENDED. THE RESULTS OF THIS EXAM WERE SENT TO THE PATIENT. ACR BI-RADS Category 2 - Benign finding MAMMOGRAPHY NOTE: 1. A negative mammogram report should not delay a biopsy if a dominant of clinically suspicious mass is present. 2. Approximately 10% to 15% of breast cancers are not detected by mammography. 3. Adenosis and dense breasts may obscure an underlying neoplasm. Reported by: CHRIS IZAGUIRRE MD Electonically Signed: [id number]
== END 2020-07-02 10:20 | disposition home or self-care (01) ==
LOC: BICMAMMO 10:19
PROVIDERS: ATTEND Family Medicine
DX: R92.8 Other abnormal and inconclusive findings on diagnostic imaging of breast (principal)
CPT/HCPCS: 77066; G0279

== ENCOUNTER 2021-05-07 16:12 | Outpatient (CLI) | payer MEDICARE, OTHER | END 2021-05-07 16:13 | disposition home or self-care (01) | LOC: RAD 16:12 | PROVIDERS: ATTEND Internal Medicine | DX: R05.9 Cough, unspecified (principal) | CPT/HCPCS: 71046 ==

== ENCOUNTER 2021-06-10 13:03 | Outpatient (CLI) | payer MEDICARE, OTHER | END 2021-06-10 13:04 | disposition home or self-care (01) | LOC: BICCT 13:03 | PROVIDERS: ATTEND Family Medicine | DX: Z12.2 Encounter for screening for malignant neoplasm of respiratory organs (principal); F17.210 Nicotine dependence, cigarettes, uncomplicated; Z72.0 Tobacco use; E27.8 Other specified disorders of adrenal gland | CPT/HCPCS: 71271 ==

== ENCOUNTER 2022-01-20 10:52 | Outpatient (CLI) | payer MEDICARE | END 2022-01-20 10:53 | disposition home or self-care (01) | LOC: BICMAMMO 10:52 | PROVIDERS: ATTEND Family Medicine | DX: Z12.31 Encounter for screening mammogram for malignant neoplasm of breast (principal); Z80.3 Family history of malignant neoplasm of breast | CPT/HCPCS: 77063; 77067 ==

== ENCOUNTER 2023-01-19 13:11 | Outpatient (CLI) | payer MEDICARE | END 2023-01-19 13:12 | disposition home or self-care (01) | LOC: BICCT 13:11 | PROVIDERS: ATTEND Family Medicine | DX: Z12.2 Encounter for screening for malignant neoplasm of respiratory organs (principal); F17.210 Nicotine dependence, cigarettes, uncomplicated; E27.8 Other specified disorders of adrenal gland | CPT/HCPCS: 71271 ==

== ENCOUNTER 2024-04-18 13:20 | Outpatient (CLI) | payer MEDICARE | END 2024-04-18 13:21 | disposition home or self-care (01) | LOC: BICCT 13:20 | DX: Z12.2 Encounter for screening for malignant neoplasm of respiratory organs (principal); F17.210 Nicotine dependence, cigarettes, uncomplicated; R91.1 Solitary pulmonary nodule | CPT/HCPCS: 71271 ==

== ENCOUNTER 2025-03-09 09:26 | Day surgery (SDC) | payer MEDICARE ==
[2025-03-08 10:23] VITALS: BMI 34.7
[2025-03-09 10:58] LABS: #Basophils 0.04 10x3/uL (0.0-0.2); #Eosinophils 0.06 10x3/uL (0.0-0.7); #Monocytes 0.42 10x3/uL (0.11-0.59); #Neutrophils 4.91 10x3/uL (1.40-6.50); %Basophils 0.6 % (0.0-1.0); %Eosinophils 0.9 % (0.0-10.0); %Lymphocytes 17.8 % (21.0-51.0); %Monocytes 6.3 % (0.0-10.0); %Neutrophils 74.2 % (42.0-75.0); Hematocrit 48.1 % (36.0-47.0); Hemoglobin 15.3 g/dL (12.0-16.0); Mean Corpuscular Hemoglobin 30.0 pg (27.0-31.0); Mean Corpuscular Volume 94.3 fL (78.0-98.0); Platelet Count 192 10x3/uL (130-400); Red Blood Cell (RBC) Count 5.10 mill/uL (4.20-5.40); White Blood Cell (WBC) Count 6.62 10x3/uL (4.8-10.8)
[2025-03-09 11:21] LABS: Anion Gap 16 mmol/L (10-20); BUN (Urea Nitrogen) 21 mg/dL (9.8-20.1); Calc. Creatinine Clearance 96 mL/min (70-130); Calcium 9.8 mg/dL (7.8-10.44); Carbon Dioxide 25 mmol/L (23-31); Chloride 103 mmol/L (98-107); Glucose 104 mg/dL (83-110); Potassium 4.0 mmol/L (3.5-5.1); Sodium 140 mmol/L (136-145)
[2025-03-09] MEDS ORDERED: Glycopyrrolate 0.2 MG/ML 5 ML SYRINGE ONE (13:02)
[2025-03-09] MEDS ORDERED: Lidocaine 1% PF 5 ML VIAL ONE (13:02)
[2025-03-09] MEDS ORDERED: PROPOFOL 200 MG/20 ML VIAL ONE (13:02)
== END 2025-03-09 14:56 | disposition home or self-care (01) ==
LOC: SDC 09:26
PROVIDERS: ATTEND Internal Medicine Cardiovascular Disease
PROC: B245ZZ4 Ultrasonography of Left Heart, Transesophageal (ICD-10-PCS; principal; 2025-03-09)
DX: I48.91 Unspecified atrial fibrillation (principal); E78.00 Pure hypercholesterolemia, unspecified; I73.9 Peripheral vascular disease, unspecified; I35.8 Other nonrheumatic aortic valve disorders; I10 Essential (primary) hypertension; M79.609 Pain in unspecified limb; R07.9 Chest pain, unspecified; I34.0 Nonrheumatic mitral (valve) insufficiency; R55 Syncope and collapse; E04.1 Nontoxic single thyroid nodule; G25.81 Restless legs syndrome; E05.00 Thyrotoxicosis with diffuse goiter without thyrotoxic crisis or storm; I51.89 Other ill-defined heart diseases; F17.200 Nicotine dependence, unspecified, uncomplicated; M17.10 Unilateral primary osteoarthritis, unspecified knee; Z79.01 Long term (current) use of anticoagulants; Z79.899 Other long term (current) drug therapy
CPT/HCPCS: 80048; 85025; 92960; 93005; 93312; J2704; 36415; 93010

== ENCOUNTER → 2025-04-24 | Day surgery (SDC) | payer MEDICARE ==
[2025-04-20 10:18] VITALS: BMI 34.7
[2025-04-20 11:00] LABS: #Basophils 0.03 10x3/uL (0.0-0.2); #Eosinophils 0.07 10x3/uL (0.0-0.7); #Monocytes 0.36 10x3/uL (0.11-0.59); #Neutrophils 4.40 10x3/uL (1.40-6.50); %Basophils 0.5 % (0.0-1.0); %Eosinophils 1.2 % (0.0-10.0); %Lymphocytes 13.8 % (21.0-51.0); %Monocytes 6.4 % (0.0-10.0); %Neutrophils 77.9 % (42.0-75.0); Hematocrit 45.5 % (36.0-47.0); Hemoglobin 14.3 g/dL (12.0-16.0); Mean Corpuscular Hemoglobin 29.7 pg (27.0-31.0); Mean Corpuscular Volume 94.6 fL (78.0-98.0); Platelet Count 224 10x3/uL (130-400); Red Blood Cell (RBC) Count 4.81 mill/uL (4.20-5.40); White Blood Cell (WBC) Count 5.65 10x3/uL (4.8-10.8)
[2025-04-20 11:41] LABS: ALT (SGPT) 42 U/L (Less than 34); AST (SGOT) 33 U/L (11-34); Albumin 3.8 g/dL (3.1-4.5); Alkaline Phosphatase 126 U/L (40-110); Anion Gap 12 mmol/L (10-20); BUN (Urea Nitrogen) 17 mg/dL (9.8-20.1); Bilirubin, Total 0.7 mg/dL (0.3-1.2); Calc. Creatinine Clearance 0 mL/min (70-130); Calcium 9.6 mg/dL (7.8-10.44); Carbon Dioxide 28 mmol/L (23-31); Chloride 101 mmol/L (98-107); Globulin 2.9 g/dL (2.4-3.5); Glucose 106 mg/dL (83-110); Potassium 4.2 mmol/L (3.5-5.1); Sodium 137 mmol/L (136-145)
[2025-04-20 12:25] LABS: INR-International Normal Ratio 1.8; PTT 37.0 sec (22.9-36.1); Prothrombin Time 20.8 sec (12.0-14.7)
[2025-04-21 05:13] LABS: Myoglobin, Serum 50.0 ng/mL (25-58)
[2025-04-23 13:37] LABS: Hemoglobin,Free - Plasma 3.3 mg/dL (0.0-4.9)
[~2025-04-24] MED LIST changes: +Glycopyrrolate 0.2 MG/ML 5 ML SYRINGE ONE; +Heparin 10,000 UNITS/ 10 ML VIAL ONE; +Isoproterenol 0.2 MG/1 ML AMP ONE; +Lidocaine 1% PF 5 ML VIAL ONE; +Nitroglycerin 50 MG/250 ML BOT 250 ML ONE; +Ondansetron PF 4 MG/2 ML Vial ONE; +PROPOFOL 200 MG/20 ML VIAL ONE; +PROPOFOL 40 ML ONE; -Prevnar 13-Val Conj/PF 0.5 ML SYRINGE IM ONE; +Rocuronium Bromide 10 MG/ML (10ML VIAL) ONE; +SUGAMMADEX SODIUM 200 MG/2 ML VIAL ONE
== END ==
LOC: SDC 08:25
PROVIDERS: ATTEND Internal Medicine Cardiovascular Disease
DX: I48.19 Other persistent atrial fibrillation (principal); I34.0 Nonrheumatic mitral (valve) insufficiency; I10 Essential (primary) hypertension; E78.00 Pure hypercholesterolemia, unspecified; Z90.710 Acquired absence of both cervix and uterus; Z90.89 Acquired absence of other organs
CPT/HCPCS: 80053; 83010; 83051; 83874; 85025; 85347 ×2; 85610; 85730; 86850; 86900; 86901; 93623; 93656; 93657; C1730; C1732; C1733; C1759; C1760; C1766; C1769; C1893; C1894 ×2; J1100; J1644 ×2; J2405; J2704; J2720; J3010; 93005; 93010